=== PATIENT | male | born 1980 | race Caucasian/White ===

== ENCOUNTER 2019-12-23 08:55 | Outpatient (CLI) | payer SELFPAY ==
[2019-12-24 16:02] LABS: COVID-19 RT-PCR Result Not Detected ((See Note))
== END 2019-12-23 09:15 ==
PROVIDERS: Visit Provider Internal Medicine
DX: Z11.59 Encounter for screening for other viral diseases (principal)
CPT/HCPCS: U0003

== ENCOUNTER 2020-03-27 03:00 | Observation (INO) | payer SELFPAY ==
[2020-03-27] VITALS (31 sets, daily range): BP systolic 123–173; BP diastolic 66–125; PULSE 66–111; RESP 18–25; TEMP 36.1–38.1; O2SAT 93–98
--- NOTE | 2020-03-27 03:00 | RT.EKG_ITS ---
APPROVED REPORT Exam: Resting ECG Patient Location: E HR:82 bpm ECG Measurements Heart Rate 82 AXIS NE 157 P 68 QRSd 107 QRS -17 QT 376 T 33 QTc 437 Conclusion Sinus rhythm...normal P axis, V-rate 60- 99 Atrial premature complex...SV complex w/ short R-R interval
--- NOTE | 2020-03-27 03:00 | DI.CT_ITS ---
EXAM: CT CHEST PE ABD PELVIS W CLINICAL HISTORY: left sided chest and abdominal pain. TECHNIQUE: Imaging Protocol: Axial CT angiography was performed with multi-slice acquisition and mu lti-planar and/or 3D reconstructions. CONTRAST MATERIAL: Intravenous: Omnipaque 350 Contrast volume:99 mL COMPARISON: CT CHEST FOR PULMONARY EMBOLUS from 03/16/2017 FINDINGS: There is patient motion artifact. CHEST: Pulmonary Arteries: No evidence of filling defect to suggest pulmonary emboli. Tracheobronchial tree: Patent where visualized. Mediastinum and Nasreen: No dominant adenopathy or fluid collection. Pulmonary parenchyma: No consolidation or dominant measurable mass. No architectural distortion. Pleura: No effusion or pneumothorax. Heart: The heart is not dilated. No coronary artery calcifications are seen. No pericardial effusion. Aorta: Thoracic aorta non-dilated. No aneurysm or dissection. Bones: Normal. Soft tissues: Bilateral gynecomastia. ABDOMEN: Liver: Normal density. No measurable mass. Portal, Superior Mesenteric, and Splenic Veins: Unremarkable. Gallbladder and Biliary Tract: No radiodense calculus or dilation. Pancreas: There is a 9 cm complex lesion in the tail of the pancreas. Minimal peripancreatic strandi ng is noted. Spleen: There is a crescentic loculated fluid collection along the anterolateral aspect of the spleen . Adrenals: No masses seen. Kidneys: Normal size, contour and axis. No radiodense stones or obstructive uropathy. No masses seen. Abdominal Aorta: Abdominal portion non-dilated. Bowel: No obstruction or bowel wall thickening. No evidence of acute appendicitis. Peritoneal Cavity: No ascites, collection or mesenteric inflammatory response. Lymph Nodes: Within normal limits. Bones: Unremarkable. Soft Tissues: Unremarkable. PELVIS: Bladder: Symmetric distention, no gross wall thickening. Reproductive Organs: Unremarkable as visualized. Lymph Nodes: Within normal limits. Bones: Within normal limits. IMPRESSION: 1. No evidence of pulmonary embolism, thoracic aortic dissection or aneurysm. 2. 9 cm complex lesion in the tail of the pancreas. This may represent a complex or hemorrhagic pseu docyst but a soft tissue mass cannot be excluded. 3. Loculated fluid collection along the spleen which may also represent a pseudocyst. RADIATION DOSE DELIVERED: 2,924.36mGy.cm Total DLP 2,924.36mGy.cm Total DLP DATA REPOSITORY: All CT scans at this facility are submitted to the National Radiology Data Registry (NRDR) Dose Index Registry (DIR) with the [employer] (ACR). RADIATION OPTIMIZATION: All CT scans at this facility use at least one of these dose optimization te chniques: automated exposure control; mA and/or kV adjustment per patient size (includes targeted exa ms where dose is matched to clinical indication); or iterative reconstruction.
--- NOTE | 2020-03-27 03:09 | ED.GENADUL_ITS ---
Discharge Plan Disposition Patient Disposition: [facility] INPATIENT Condition: Stable Discharge Details Chief Complaint: Abd Prob Clinical Impression: Pancreatic pseudocyst, Abdominal pain Primary Care Provider: Michelle Mcdonnell ED Provider: Vijay Guaman Home Meds and New Rx's Prescriptions: No Action venlafaxine [Effexor XR] 150 MG capsule,extended release 24hr 100 mg PO DAILY RF: 0 buprenorphine-naloxone [Suboxone] 1 EACH film 1 film PO DAILY RF: 0 Medical Decision Making 39 yo male with hx of prior drug abuse on suboxone and prior pancreatitis in the past comes in with cc of abdominal pain for a day that is worsening. Also has had n/v. Denies fevers, chills, alcohol use tonight, no drug use. He arrives in pain localizing the pain to the left lower chest and left upper abdomen/epigastric region. No distention on exam. Does state deep breaths worsens the pain. Suspect likely pancreatitis but given pleuritic nature of pain will obtain cta of the chest to eval for PE and ct of abdomen/pelvis to evaluate for entities such as pneumoperitoneum. lab work unremarkable he remains hd stable still having pain will order administ er dilaudid awaiting imaging imaging shows likely complex psuedocyst. discussed with Dr. Louis who felt unlikely to be actively bleeding given hd stable but felt may eventually need IR so consult [facility] to see if beds available no beds available at [facility] so will be treated symptomatically here and if needed [facility] can do an IR procedure and return patient here but not indicated at this time. Spoke with Dr. Estrada who accepts for admission Differential Diagnosis Differential Diagnosis: pancreatitis, pe, acs, cholecystitis, gastroenteritis Medical Records Medical records reviewed: Yes I reviewed the patient's medical records. Imaging Data Radiologic Study: Attestation: I personally reviewed and interpreted this imaging study as follows: Imaging: CT Scan Radiologist's impression: IMPRESSION: 1. 9 cm complex lesion of the pancreatic tail could indicate a complex/hemorrhagic pseudocyst but with soft tissue mass not entirely excluded. 2. Loculated fluid along the spleen, also could indicate pseudocyst. Lab Data Lab results reviewed: Yes I reviewed the patient's lab results. ECG Data Attestation: I personally reviewed and interpreted this ECG (s) as follows: Prior ECG tracings: not available for review Interpretation: sinus rhythm, rate of 82, pr 157, motion artifact but no obvious st t wave ischemic findings HPI General Mode of arrival: ambulatory . Date/Time Provider Initiated Documentation: 03/27/20 03:00 . Limitations to Documentation: no limitations . Information obtained by: patient . History of Present Illness 39 year old M presents to the emergency department with the chief complaint of abdominal pain, described as moderate, Patient started experiencing this day(s) (1) and it has been constant. No relieving factors improve symptom(s), Patient notes nausea/vomiting. Patient did receive the following treatments prior to arrival, none Related Data Home Medications Medication Instructions Recorded Confirmed buprenorphine-naloxone [Suboxone 8 1 film PO DAILY 03/13/17 03/27/20 mg-2 mg Sl Film] venlafaxine [Effexor Xr] 100 mg PO DAILY 03/13/17 03/27/20 Allergies Allergy/AdvReac Type Severity Reaction Status Date / Time No Known Allergies Allergy Unverified 03/27/20 03:03 General Stated Complaint: Abd Prob ANGELI: 3 Review of Systems All systems reviewed & are unremarkable except as noted in HPI and below Constitutional Constitutional: Denies chills, Denies fever(s) and Denies weakness Cardiovascular Cardiovascular: Denies dyspnea Respiratory Respiratory: Denies cough and Denies dyspnea Musculoskeletal Musculoskeletal: Denies joint swelling Neurologic Neurologic: Denies weakness [facility] Social History Smoking/Tobacco Use Status: Current every day Tobacco Type: cigarettes Alcohol Intake: current Alcohol Intake frequency: holidays/special occasions only Alcohol type: other Drug use: Never Substance use type: does not use Do you feel safe at home: Yes Do you feel safe in your relationship?: Yes Exam Const General: no acute distress Orientation: alert [facility] Head: normal to inspection Ears: external ears normal General nose exam: external nose normal Mouth: moist mucous membranes Eyes General: appearance normal, both eyes and all related structures Neck Neck: normal visual inspection Resp Effort & Inspection: normal respiratory effort and able to speak in complete sentences Cardio Rate: regular rate GI Palpation: soft Skin General skin exam: no rashes or lesions noted Neuro General: patient alert and patient oriented x3 Extrem General: normal to inspection Psych Mental Status: mental status grossly normal Course Vital Signs Vital signs: Vital Signs Temperature 36.4 C L 03/27/20 03:04 Pulse 78 03/27/20 03:04 Respiratory Rate 22 03/27/20 03:04 Blood Pressure 173/103 H 03/27/20 03:04 Pulse Oximetry 97 03/27/20 03:04 Temperature 36.4 C L 03/27/20 03:04 Temperature Source Tympanic 03/27/20 03:04 Pulse 78 03/27/20 03:04 Respiratory Rate 22 03/27/20 03:04 Blood Pressure 173/103 H 03/27/20 03:04 Pulse Oximetry 97 03/27/20 03:04 Oxygen Delivery Method Room Air 03/27/20 03:04 Oxygen Flow Rate 0 03/27/20 03:04 Pain Level 10 03/27/20 03:04
[2020-03-27] MEDS: Ketorolac 15 MG/ML VIAL IVP (03:26)
[2020-03-27] MEDS: Ondansetron 4 MG/2 ML VIAL IVP ×2 (03:26→11:14)
[2020-03-27 03:27] LABS: Abs Immature Grans 0.05 10^3/uL (0.0-0.06); Absolute Basophil Count 0.02 10^3/uL (0.0-0.2); Absolute Eosinophil Count 0.01 10^3/uL (0.0-0.7); Absolute Lymphocyte Count 1.25 10^3/uL (1.2-3.4); Absolute Monocyte Count 0.47 10^3/uL (0.1-0.8); Absolute Neutrophil Count 10.58 10^3/uL (1.2-6.7); Basophils % 0.2; Eosinophils % 0.1; HCT 38.1 % (40.0-50.0); HGB 12.6 g/dL (13.5-17.5); Immature Grans % 0.4; Lymphocytes % 10.1; MCH 32.6 pg (27.0-33.0); MCHC 33.1 % (32.0-36.0); MCV 98.4 fL (80-95); MPV 9.5 fL (8.0-11.0); Monocytes % 3.8; Neutrophils % 85.4; Nucleated RBC 0 %; Platelet Count 291 10^3/uL (130-400); RBC 3.87 10^6/uL (4.36-5.78); RDW 13.3 % (11.8-14.1); RDW-SD 47.5 fL; WBC 12.39 10^3/uL (4.4-10.8)
[2020-03-27] MEDS: Omnipaque 350 MG/ML 100 ML BTL IV (04:05)
[2020-03-27] MEDS: Normal Saline 1,000 ML 1000 ML IV ×3 (04:05→14:21)
[2020-03-27] MEDS: HYDROmorphone 2 MG/ML VIAL 1 MG IVP (04:05)
[2020-03-27 04:14] LABS: Bilirubin, Total 0.3 mg/dL (0.2-1.0)
[2020-03-27 04:18] LABS: ALT 31 U/L (16-63); AST 24 U/L (15-37); Albumin 4.1 g/dL (3.4-5.0); Alkaline Phosphatase 73 U/L (46-116); Anion Gap 7.4 mmol/L (3-11); BUN 21 mg/dL (7-18); Bilirubin, Direct 0.08 mg/dL (0.00-0.20); Bilirubin, Total 0.3 mg/dL (0.2-1.0); CO2 29.6 mmol/L (21.0-32.0); CREATININE 0.96 mg/dL (0.70-1.30); Calcium 9.5 mg/dL (8.5-10.1); Chloride 98 mmol/L (98-107); Glucose 177 mg/dL (74-106); Lipase 172 U/L (73-393); Magnesium 1.6 mg/dL (1.8-2.4); Potassium 3.9 mmol/L (3.5-5.1); Sodium 135 mmol/L (136-145); Total Protein 7.8 g/dL (6.4-8.2)
[2020-03-27 04:20] LABS: INR 1.1 (0.9-1.1); PTT Activated 25.4 sec (21.0-31.4); Prothrombin Time 10.6 sec (9.3-11.0)
[2020-03-27 04:25] LABS: ETHANOL BLOOD < 3.0 mg/dL (<3); Troponin I < 0.05 ng/mL (<0.06)
--- NOTE | 2020-03-27 05:29 | DI.VRAD_ITS ---
PROCEDURE INFORMATION: Exam: CT Angiography Chest With Contrast Exam date and time: 03/27/2020 3:08 AM Age: 39 years old Clinical indication: Other: Left sided cp and abd pain/ vomiting; Additional info: *pt vomited during abd/pelvis scan, scan repeated due to motion. Limited study. TECHNIQUE: Imaging protocol: Computed tomographic angiography of the chest with intravenous contrast. 3D rendering: MIP and/or 3D reconstructed images were created by the technologist. Radiation optimization: All CT scans at this facility use at least one of these dose optimization techniques: automated exposure control; mA and/or kV adjustment per patient size (includes targeted exams where dose is matched to clinical indication); or iterative reconstruction. Contrast material: OMNIPAQUE 350; Contrast volume: 100 ml; Contrast route: INTRAVENOUS (IV); COMPARISON: CT CHEST FOR PULMONARY EMBOLUS 03/16/2017 9:40 AM FINDINGS: Pulmonary arteries: Normal. No pulmonary emboli. Aorta: Unremarkable. No aortic aneurysm. No aortic dissection. Lungs: Unremarkable. No consolidation. No masses. Pleural space: Unremarkable. No pneumothorax. No pleural effusion. Heart: Unremarkable. No cardiomegaly. No pericardial effusion. Lymph nodes: Unremarkable. No enlarged lymph nodes. Bones/joints: Unremarkable. No acute fracture. Soft tissues: Unremarkable. IMPRESSION: No acute findings. PROCEDURE INFORMATION: Exam: CT Abdomen And Pelvis With Contrast Exam date and time: 03/27/2020 3:08 AM Age: 39 years old Clinical indication: Other: Left sided cp and abd pain/ vomiting; Additional info: *pt vomited during abd/pelvis scan, scan repeated due to motion. Limited study. TECHNIQUE: Imaging protocol: Computed tomography of the abdomen and pelvis with intravenous contrast. Radiation optimization: All CT scans at this facility use at least one of these dose optimization techniques: automated exposure control; mA and/or kV adjustment per patient size (includes targeted exams where dose is matched to clinical indication); or iterative reconstruction. Contrast material: OMNIPAQUE 350; Contrast volume: 100 ml; Contrast route: INTRAVENOUS (IV); COMPARISON: CT CHEST FOR PULMONARY EMBOLUS 03/16/2017 9:40 AM FINDINGS: Liver: Normal. No mass. Gallbladder and bile ducts: Normal. No calcified stones. No ductal dilation. Pancreas: 9 cm complex lesion of the pancreatic tail could indicate a complex/hemorrhagic pseudocyst but with soft tissue mass not entirely excluded. Minimal peripancreatic stranding. Spleen: Loculated fluid along the spleen, also could indicate pseudocyst. Adrenals: Normal. No mass. Kidneys and ureters: Normal. No hydronephrosis. Stomach and bowel: Unremarkable. No obstruction. No mucosal thickening. Appendix: No evidence of appendicitis. Intraperitoneal space: Unremarkable. No free air. No significant fluid collection. Vasculature: Unremarkable. No abdominal aortic aneurysm. Lymph nodes: Unremarkable. No enlarged lymph nodes. Bladder: Unremarkable as visualized. Reproductive: Unremarkable as visualized. Bones/joints: Unremarkable. No acute fracture. Soft tissues: Unremarkable. IMPRESSION: 1. 9 cm complex lesion of the pancreatic tail could indicate a complex/hemorrhagic pseudocyst but with soft tissue mass not entirely excluded. 2. Loculated fluid along the spleen, also could indicate pseudocyst. Dictated and Authenticated by: Vijay Rainey MD. Ordering:ALEJANDRA Linares MD
[2020-03-27] MEDS: Normal Saline 1,000 ML 150 ML IV (06:12)
--- NOTE | 2020-03-27 06:56 | HPE_ITS ---
Date of service: 03/27/20 Time of Service: 06:57 Assessment and Plan Assessment and plan (1) Pancreatic pseudocyst: Status: Acute Assessment and plan: 9 cm complex pancreatic cyst w/ accompanying fluid in the spleen. This may be a hemorrhagic cyst. At present he has no fever and other than minimal elevation of his WBC to 12,000, no indication that his is an infected pancreatic phlegmon. At present I would treat him symptomatically for chronic pancreatitis w/ keeping him NPO except for medications, provide narcotic analgesics; avoid NSAIDS and avoid usual DVT prophylaxis w/ enoxaparin in case this is or becomes a hemorraghic cyst. Will hydrate w/ iv fluids and give anti- emetics. Consult w/ surgery to give additional guidance. Will get MRCP on Saturday to better evaluate the nature of the cyst. Of note, this 9 cm pancreatic cyst was not seen on CT scan nor on his abdominal US from February 2017 when he was hospitalized w/ acute pancreatitis and pneumonia. Will request that nursing call for records from the [facility] in [place], [place]. (2) Abdominal pain: Status: Acute Assessment and plan: No chemical evidence for acute pancreatitis but given his complex pancreatic cyst/pseudocyst, he probably has a component of chronic pancreatitis. This may have recently been exacerbated by his recent drinking of four to five beers. Will get an MRCP on Saturday to better evaluate his pancreatic complex cyst. This may need IR drainage. If he spikes a fever, then I would cover him w/ a carbapenem for an infected pancreatic phlegmon and arrange urgent IR drainage of the cyst. Qualifiers: Abdominal location: left upper quadrant Qualified Code(s): R10.12 - Left upper quadrant pain (3) Depression: Status: Chronic Assessment and plan: not actively suicidal or homicidal. there is some question as to his antidepressant regimen. His list includes Venlafaxine however he told me that he is taking Duloxetine. I will ask nursing to obtain a corrected med list from the [facility] in [place], [place] Qualifiers: Depression Type: major depressive disorder Major depression recurrence: recurrent Active/Remission status: remission status unspecified Qualified Code(s): F33.9 - Major depressive disorder, recurrent, unspecified History of Present Illness History of Present Illness Chief Complaint: Abdominal pain, nausea and vomiting Narrative: 39-year-old male former member the [employer] who has a past history of oral opioid addiction associated with a service injury to his hip now currently in a Suboxone program through the [facility] in [place] and also a past history of pancreatitis presents emergency department with acute onset of abdominal pain nausea and vomiting beginning at 9 PM last night. No associated fever or rigors nor any hematemesis or melena. Evaluation emergency department included CTA of the chest abdomen pelvis. No pulmonary pathology was noted. However he was noted to have a 9 cm complex cyst involving the tail the pancreas as well as some fluid collection that is loculated along the spleen also suggestive of a cyst. Labs were remarkable for minimal leukocytosis of 12,000 and a minimally depressed magnesium level 1.6. Rest of his CMP was within normal limits including normal LFTs and normal INR and normal total protein and albumin levels. Dr. Vijay Guaman, emergency room physician, consulted with [facility] as well as with Dr. Rebecca Louis, local general surgeon, kelly candelario management of this complex possibly hemorrhagic pancreatic cyst. Dr. Louis recommend referral to [facility]. [facility] indicated they had no beds available for transfer and felt he could be managed locally. Treatment emergency department included IV fluids including normal saline x1 L as well as narcotic analgesics and antiemetics including Zofran for nausea as well as Dilaudid and dose of ketorolac. Patient is admitted for pain control as well as further imaging including MRCP of his pancreas on Saturday. Review of Systems Constitutional Constitutional: Denies chills and Denies fever(s) Cardiovascular Cardiovascular: Denies chest pain and Denies dyspnea Respiratory Respiratory: Denies cough and Denies dyspnea Gastrointestinal Gastrointestinal: Reports as per HPI, Denies melena, Denies change in stool c haracter, Denies coffee ground emesis, Denies diarrhea, Reports nausea, Reports vomiting and Denies hematemesis Genitourinary Genitourinary: Reports system reviewed and no additional complaints, except as documented [facility] Medical History Cannabis abuse with other cannabis-induced disorder (Inactive) Depression (Chronic) Social History Smoking/Tobacco Use Status: Current every day Tobacco Type: cigarettes Alcohol Intake: current Alcohol Intake frequency: holidays/special occasions only Alcohol type: other Drug use: Never Substance use type: does not use Do you feel safe at home: Yes Do you feel safe in your relationship?: Yes Meds Home Medications and Allergies Home Medications Medication Instructions Recorded Confirmed Type buprenorphine-naloxone [Suboxone 8 1 film PO DAILY 03/13/17 03/27/20 History mg-2 mg Sl Film] venlafaxine [Effexor Xr] 100 mg PO DAILY 03/13/17 03/27/20 History Allergies Allergy/AdvReac Type Severity Reaction Status Date / Time No Known Allergies Allergy Unverified 03/27/20 03:03 Exam Narrative Exam Narrative: Middle age male who appears to be resting comfortably although still w/ residual abdominal pain but improved since arriving to the ER HEENT is remarkable for blood shot conjunctivae, no icterus. normal EOMI and pupils neck obese, supple, nontender w/out JVD, thyromegaly or LN Lungs clear Heart: RRR, w/o murmur, rub or gallops; normal PMI Abdomen: soft but tender particularly in LUQ and epigastrium, normal bowel sounds, positive guarding w/out rebound tenderness or referred pain Genitalia and rectal exam deferred Neuro exam is grossly normal w/ normal ROM and strength and normal sensation to light touch. No focal CN abnormalities. No tremors Results Labs Result diagrams: 03/27/20 03:21 03/27/20 03:21 Labs: Laboratory Results - last 24 hr 03/27/20 03/27/20 03/27/20 03:21 03:21 03:21 WBC 12.39 H RBC 3.87 L Hgb 12.6 L Hct 38.1 L MCV 98.4 H MCH 32.6 MCHC 33.1 RDW 13.3 Plt Count 291 MPV 9.5 Immature Gran % 0.4 Neutrophils % 85.4 Lymphocytes % 10.1 Monocytes % 3.8 Eosinophils % 0.1 Basophils % 0.2 Absolute Neutrophils 10.58 H Absolute Lymphocytes 1.25 Absolute Monocytes 0.47 Absolute Eosinophils 0.01 Absolute Basophils 0.02 PT INR APTT Sodium 135 L Potassium 3.9 Chloride 98 Carbon Dioxide 29.6 Anion Gap 7.4 BUN 21 H Creatinine 0.96 Estimated GFR/1.73 m2 >= 60.00 Glucose 177 H Calcium 9.5 Magnesium 1.6 L Total Bilirubin 0.3 0.3 Conjugated Bilirubin 0.08 AST 24 ALT 31 Alkaline Phosphatase 73 Troponin I < 0.05 Total Protein 7.8 Albumin 4.1 Lipase 172 Ethyl Alcohol < 3.0 03/27/20 03:21 WBC RBC Hgb Hct MCV MCH MCHC RDW Plt Count MPV Immature Gran % Neutrophils % Lymphocytes % Monocytes % Eosinophils % Basophils % Absolute Neutrophils Absolute Lymphocytes Absolute Monocytes Absolute Eosinophils Absolute Basophils PT 10.6 INR 1.1 APTT 25.4 Sodium Potassium Chloride Carbon Dioxide Anion Gap BUN Creatinine Estimated GFR/1.73 m2 Glucose Calcium Magnesium Total Bilirubin Conjugated Bilirubin AST ALT Alkaline Phosphatase Troponin I Total Protein Albumin Lipase Ethyl Alcohol Last Vital Signs Temp 36.4 C L 03/27/20 03:04 Pulse 66 03/27/20 05:39 Resp 22 03/27/20 03:04 BP 147/82 H 03/27/20 05:39 Pulse Ox 96 03/27/20 05:39 COVID-19 Screening Have you,or household,traveled outside [place] in last 14 days?: No Had IN PERSON contact w/suspected or confirmed C-19 person: No
[2020-03-27 07:59] LABS: Bilirubin Negative (Negative); Blood Negative (Negative); Clarity Clear (Clear); Glucose Negative (Negative); Ketones Negative (Negative); Leukocyte Esterase Negative (Negative); Nitrite Negative (Negative); Specific Gravity 1.015 (1.005-1.025); Urobilinogen 0.2 EU/dL (Up TO 0.2); pH 8.5 (5-8)
[2020-03-27] MEDS: HYDROmorphone 2 MG/ML VIAL IVP ×2 (08:02→11:15)
[2020-03-27] MEDS: MAGNESIUM SULFATE 2 GM/50 ML BAG IVPB ×2 (08:03→14:03)
[2020-03-27] MEDS: Normal Saline Flush 10 ML SYR IVP ×4 (08:03→12:21)
[2020-03-27 08:04] LABS: *AMPHETAMINES SCREEN URINE Negative (Negative); *BARBITURATES SCREEN URINE Negative (Negative); *BENZODIAZEPINES SCREEN URINE Negative (Negative); Cannabinoids THC Negative (Negative); Cocaine Screen,Urine Negative (Negative); METHADONE URINE SCREEN Negative (Negative); OPIATES URINE SCREEN POSITIVE (Negative)
[2020-03-27 08:05] LABS: Tricyclic Antidepressants POSITIVE (Negative)
[2020-03-27 08:14] LABS: Bacteria Negative HPF (Negative); Casts Negative LPF (Negative); Crystals Negative HPF (Negative); Epithelial Cells Rare HPF (Negative); Mucus Negative (Negative); RBC Negative HPF (0-2); WBC 0-2 HPF (0-5)
[2020-03-27 08:15] LABS: C & S Indicated? No
[2020-03-27] MEDS: Pantoprazole 40 MG VIAL IVP (09:37)
[2020-03-27] MEDS: ACETAMINOPHEN 1,000 MG/100 ML BTL 400 MG IVPB (10:30)
[2020-03-27] MEDS: MULTIVITAMIN 10 ML, THIAMINE 100 MG, FOLIC ACID 1 MG in DEXTROSE 5%-0.45% SALINE 1,000 ML 200 ML IV (11:32)
[2020-03-27] MEDS: Prochlorperazine 10 MG/2 ML VIAL IVP (12:21)
[2020-03-27 12:27] LABS: Abs Immature Grans 0.07 10^3/uL (0.0-0.06); Basophils % 0.1; Eosinophils % 0.1; HCT 39.5 % (40.0-50.0); HGB 13.1 g/dL (13.5-17.5); Immature Grans % 0.4; Lymphocytes % 9.8; MCH 32.4 pg (27.0-33.0); MCHC 33.2 % (32.0-36.0); MCV 97.8 fL (80-95); MPV 9.4 fL (8.0-11.0); Neutrophils % 83.6; Nucleated RBC 0 %; Platelet Count 355 10^3/uL (130-400); RBC 4.04 10^6/uL (4.36-5.78); RDW 13.2 % (11.8-14.1); RDW-SD 47.5 fL; WBC 16.39 10^3/uL (4.4-10.8)
[2020-03-27 12:28] LABS: Absolute Basophil Count 0.02 10^3/uL (0.0-0.2); Absolute Eosinophil Count 0.02 10^3/uL (0.0-0.7); Absolute Lymphocyte Count 1.61 10^3/uL (1.2-3.4); Absolute Monocyte Count 0.98 10^3/uL (0.1-0.8)
[2020-03-27] MEDS: LORazepam 2 MG/ML VIAL 3 MG IVP ×2 (12:45→15:08)
--- NOTE | 2020-03-27 12:45 | PDOC.CMIN ---
- If Service Date Differs Date of service: 03/27/20 Time of Service: 13:32 Care Management Initial Assess REASON FOR HOSPITALIZATION:: Pseudocyst PAST MEDICAL HISTORY/PAST SURGICAL HISTORY:: Cannabis abuse with other cannabi-induced disorder, Depression: Major Depressive Disorder, everyday smoker, chronic pancreatitis, prior oral opioid addiction; Suboxone program participant through [facility]. PREVIOUS FUNCTIONAL STATUS/SOCIAL/FAMILY SUPPORTS:: Vijay resides in [place], [place]. He is legally seperated from his and has two daughters (6 and 12). His mother, Isatu is his primary support and resides in [facility]. Vijay is an [employer] [place] and is attached to services at the [facility]. He is independent at baseline in the community. CURRENT FUNCTIONAL STATUS:: Vijay was transferred to the ICU due to his symptoms of pain, nausea and vomiting, CM continues to follow. ADVANCE DIRECTIVES:: None on file at [facility]. Has patient been provided with info about the portal/API?: No Did the patient sign up for the portal?: No CODE STATUS:: Full Code INSURANCE COVERAGE / FINANCIAL ISSUES:: Self Pay status. CURRENT HOME/COMMUNITY SERVICES/EQUIPMENT:: Primary provider at [facility] facility in [place]. PRIMARY CARE PHYSICIAN:: Michelle Mcdonnell POTENTIAL DISCHARGE NEEDS:: Follow up appointments, MRCP. PATIENT/FAMILY EDUCATION NEEDS:: Review discharge instructions, discuss Ask Me Three. ANTICIPATED BARRIERS TO DISCHARGE:: None identified. TRANSPORTATION:: TBD by disposition. PLAN:: Vijay was transferred to the ICU due to CIWA scores and increase in symptoms. Anticipate MRCP tomorrow; awaiting plan for intervention or transfer considerations.
--- NOTE | 2020-03-27 12:58 | PHA.REVIEW ---
Pharmacy Admission Review - Admission Clinical Review (Last Reviewed 03/27/20 @ 09:03 by Sebas Estrada) Pancreatic pseudocyst (Acute) Abdominal pain (Acute) No Known Allergies Allergy (Unverified 03/27/20 03:03) Height 5 ft 10 in Weight 108.862 kg - Renal Dosing Renal Dosing: BUN 21 mg/dL (7-18) H 03/27/20 03:21 Creatinine 0.96 mg/dL (0.70-1.30) 03/27/20 03:21 Medications needing adjustments: Reviewed - Anticoagulation Anticoagulation: Hgb 13.1 g/dL (13.5-17.5) L 03/27/20 12:15 Hct 39.5 % (40.0-50.0) L 03/27/20 12:15 Plt Count 355 10^3/uL (130-400) 03/27/20 12:15 INR 1.1 (0.9-1.1) 03/27/20 03:21 Creatinine 0.96 mg/dL (0.70-1.30) 03/27/20 03:21 DVT Prohphylaxis: N/A Therapeutic Anticoagulation: N/A - Opiate Usage Evaluate Pain Scale/Pains Meds: N/A (Is on chronic suboxone therapy.) - Relevant Labs Sodium 135 mmol/L (136-145) L 03/27/20 03:21 Potassium 3.9 mmol/L (3.5-5.1) 03/27/20 03:21 Chloride 98 mmol/L (98-107) 03/27/20 03:21 Magnesium 1.6 mg/dL (1.8-2.4) L 03/27/20 03:21 Electrolytes, C-Reactive P, ESR: Reviewed (rec'd 2 grams Mag) - DM Control DM Control: Glucose 177 mg/dL (74-106) H 03/27/20 03:21 Insulin Dosing: N/A - Heart Failure/UT Heart Failure/UT: Troponin I < 0.05 ng/mL (<0.06) 03/27/20 03:21 EF%, HIRA's, B-Blockers, Diuretics: Reviewed - BP Control BP Control: Blood Pressure 168/100 Blood Pressure 150/92 Blood Pressure 150/92 Blood Pressure 147/82 Blood Pressure 173/102 Blood Pressure 173/103 If elevated: Reviewed - Qtc Review If Elevated: Reviewed (QTc 437) - IV to PO Switch IV Medications: Reviewed - Home Meds Home Med List reviewed: Reviewed (Was able to verify suboxone dose of 20mg daily via [facility], is also on zaleplon 10mg at HS per [facility] and methylphenidate ER 36mg qAM per [facility] -- [facility]) - Current meds Current Medication Order Review: Reviewed (ondansetron + prochlorperazine + promethazine = risk of QT prolongation)
[2020-03-27 13:06] LABS: Lactate 1.2 mmol/L (0.6-1.4)
--- NOTE | 2020-03-27 13:25 | W.PM.DS.N ---
Date of service: 03/27/20 Time of Service: 13:25 DS: Diagnosis Discharge Diagnosis (1) Pancreatic pseudocyst: Status: Acute Asessment and Plan: complex, with suspected hemorrhage (2) Peritonitis: Status: Suspected (3) Abdominal pain: Status: Acute (4) Intractable nausea and vomiting: Status: Acute (5) Leucocytosis: Status: Acute (6) Alcohol withdrawal: Status: Acute Asessment and Plan: lastest CIWA score 9 (7) Dehydration: Status: Acute (8) Hypomagnesemia: Status: Acute (9) Opioid dependence: Status: Acute (10) Depression: Status: Chronic Discharge Plan Disposition Patient Disposition: [facility] Condition: Serious Discharge Details Chief Complaint: Abd Prob Clinical Impression: Pancreatic pseudocyst, Abdominal pain Reason For Visit: PSEUDOCYST Admit Date/Time: 03/27/20 06:01 Admit Provider: Sebas Estrada Attending Provider: Sebas Estrada Primary Care Provider: Michelle Mcdonnell ED Provider: Vijay Guaman Hospital Course Hospital Course: Mr Sanches is a 39 year old male with PMHx of one prior episode of alcohol pancreatitis in 2017 as well as opioid dependence of suboxone through the [facility] who developed an acute onset of LUQ abdominal pain since 9 pm last night. His workup revealed normal LFTs and lipase, but evidence of a 9 cm complex lesion at the tail of the pancreas, which is suspected to be a pseudocyst with acute hemorrhage. There is also another loculated fluid collection seen along the spleen, which is possibly another pseudocyst. The patient admit to drinking on 03/25/2020, but states that he had not drunk for at least 2 months prior and that he had not had any bouts of pancreatitis since 2017. As there were no beds at [facility], he was admitted to [facility] hospitalist service with surgical consultation on 03/27/2020. Mr Sanches developed intractable nausea and vomiting, for which he did have an NG tube placed. While his abdomen is still soft, he is starting to develop peritoneal signs with rebound tenderness and exquisite pain on even mild palpation. There is a concern that this peritonitis is developing due to the hemorrhaging pseudocyst. The patient is visibly clinically deteriorating and was transferred to the ICU. Dr Louis of general surgery has evaluated the patient and feels he would benefit from a transfer to a tertiary care facility where IR would be available for evaluation for possible embolization of the hemorrhage and a drain. The patient's hemoglobin has actually gone up to 13.1 since 12.6 on admission, presumably due to his volume contraction from vomiting. In the 8 hours at our facility, his WBC has also gone up from 12.39 to 16.39 without evidence of fever (though he received acetaminophen for pain). His lactate is 1.2. He is not on antibiotics at this time. His pain management here is complicated with the fact that he was on suboxone as outpatient, held on admission. He has required high doses of dilaudid at short intervals. Additionally, the patient is now beginning to show signs of alcohol withdrawal, though he is adamant he only drank once in the last two months - on 03/25/2020. His last CIWA score is 9. He did require initiation of soft upper extremity restraints as he was agitated and pulling on the NGT. His agitation resolved with IV ativan to treat his alcohol withdrawal. The patient has a surveillance COVID-19 test (nasopharyngeal swab) pending at the time of transfer, though there is low clinical concern for him having COVID-19 (negative screen). The patient was discussed with Dr Gibson of [facility] General Surgery who felt the patient would be appropriate for transfer to [facility] ICU under the surgical service for closer monitoring and evaluation by IR for the complex hemorrhagic pancreatic pseudocyst with suspected developing peritonitis. The patient is hemodynamically stable at this time and is agreeable with transfer. Total Critical Care Time as well as time spent on arrangement of transfer: 60 minutes. *For current inpatient medications, please, look at the MAR rather than the list of patient's medications below. Home Meds and New Rx's Prescriptions: No Action buprenorphine-naloxone 8-2 mg tablet, sublingual 2.5 tab sublingual DAILY RF: 0 sildenafil 100 mg Tablet 100 mg PO DAILY PRN PRN (Reason: Edema) RF: 0 zaleplon 5 mg Capsule 5 mg PO HS PRN PRN (Reason: Insomnia) RF: 0 methylphenidate HCl 36 mg Tablet Extended Release 24hr 36 mg PO DAILY RF: 0 duloxetine 30 mg Capsule,Delayed Release(Dr/Ec) 90 mg PO DAILY RF: 0 Discharge Instructions Activity:: OOB to chair Equipment/Supplies:: No Equipment Needed Diet:: NPO Discharge Orders Discharge Orders: Discharge Order (Routine); Ordered 03/27/20 Ordered By: Jolanta Odonnell DS: Summary Status at Discharge Functional status at discharge: independent ambulation Overall status at discharge: patient is not back to baseline Mental Status: other Speech and Movement: speech and movement normal Mood: anxious mood and other Affect: labile affect Exam Narrative Exam Narrative: General: Anxious obese male who is seen/heard vomiting multiple times throughout the day, looks sick, in visible pain HEENT: EOMI, dry MM Heart: RRR, no m/r/g Lungs: CTAB Abdomen: soft, exquisitely tender in LUQ with rebound Extremities: no e/c/c BLE's Psych Mental Status: other Speech and Movement: speech and movement normal Mood: anxious mood and other Affect: labile affect DS: Data Vitals/I&O Vitals and I&O: Vital Signs Temperature 37.2 C 03/27/20 11:24 Temperature Source Tympanic 03/27/20 11:24 Pulse 71 03/27/20 11:24 Pulse Rhythm Regular 03/27/20 07:10 Respiratory Rate 20 03/27/20 11:24 Respiratory Effort Non-Labored 03/27/20 07:10 Respiratory Depth Normal 03/27/20 07:10 Respiratory Pattern Normal 03/27/20 07:10 Blood Pressure 168/100 H 03/27/20 11:24 Blood Pressure Mean 95 03/27/20 05:39 Pulse Oximetry 97 03/27/20 11:24 Oxygen Delivery Method Room Air 03/27/20 11:24 Oxygen Flow Rate 0 03/27/20 11:24 Pain Level 10 03/27/20 12:21 Comment 03/27/20 07:10 Intake & Output 03/26/20 03/27/20 03/27/20 23:59 11:59 23:59 Intake Total 2023.2023. Output Total 200 / 200 Balance 1823.166 / 1823. Weight 108.862 kg Intake: IV 2023. Output: Urine 200 / 200 Other: Urine Color Straw Urine Appearance Clear Urine Odor Normal Comment Void x1 in the toilet. Urine specimen collected at this time per MD order. Voiding Methods Toilet Data Completed and Pending Completed studies during hospitalization [Text1]: CT chest/abdomen/pelvis: 1. No evidence of pulmonary embolism, thoracic aortic dissection or aneurysm. 2. 9 cm complex lesion in the tail of the pancreas. This may represent a complex or hemorrhagic pseudocyst but a soft tissue mass cannot be excluded. 3. Loculated fluid collection along the spleen which may also represent a pseudocyst. Minimal peripancreatic stranding is noted. Labs on day of discharge: Labs from last 24 hours 03/27/20 03/27/20 03/27/20 12:55 12:15 07:15 WBC 16.39 H D RBC 4.04 L Hgb 13.1 L Hct 39.5 L MCV 97.8 H MCH 32.4 MCHC 33.2 RDW 13.2 Plt Count 355 MPV 9.4 Immature Gran % 0.4 Neutrophils % 83.6 Lymphocytes % 9.8 Monocytes % 6.0 Eosinophils % 0.1 Basophils % 0.1 Absolute Neutrophils 13.70 H Absolute Lymphocytes 1.61 Absolute Monocytes 0.98 H Absolute Eosinophils 0.02 Absolute Basophils 0.02 PT INR APTT Sodium Potassium Chloride Carbon Dioxide Anion Gap BUN Creatinine Estimated GFR/1.73 m2 Glucose Lactate 1.2 Calcium Magnesium Total Bilirubin Conjugated Bilirubin AST ALT Alkaline Phosphatase Troponin I Total Protein Albumin Lipase Urine Color Yellow Urine Clarity Clear Urine pH 8.5 H Ur Specific [place] 1.015 Urine Protein Trace H Urine Ketones Negative Urine Blood Negative Urine Nitrite Negative Urine Bilirubin Negative Urine Urobilinogen 0.2 Ur Leukocyte Esterase Negative Urine RBC Negative Urine WBC 0-2 Ur Epithelial Cells Rare Urine Crystals Negative Urine Bacteria Negative Urine Casts Negative Urine Mucus Negative Ur Culture Indicated? No Urine Glucose Negative Urine Opiates Screen Urine Methadone Screen Ur Barbiturates Screen Ur Tricyclics Screen Ur Amphetamines Screen U Benzodiazepines Scrn Urine Cocaine Screen Ur THC Screen Ethyl Alcohol COVID-19 PCR Nasopharyn COVID-19 PCR Ref Test Perform Site 03/27/20 03/27/20 03/27/20 07:15 06:00 03:21 WBC RBC Hgb Hct MCV MCH MCHC RDW Plt Count MPV Immature Gran % Neutrophils % Lymphocytes % Monocytes % Eosinophils % Basophils % Absolute Neutrophils Absolute Lymphocytes Absolute Monocytes Absolute Eosinophils Absolute Basophils PT 10.6 INR 1.1 APTT 25.4 Sodium Potassium Chloride Carbon Dioxide Anion Gap BUN Creatinine Estimated GFR/1.73 m2 Glucose Lactate Calcium Magnesium Total Bilirubin Conjugated Bilirubin AST ALT Alkaline Phosphatase Troponin I Total Protein Albumin Lipase Urine Color Urine Clarity Urine pH Ur Specific [place] Urine Protein Urine Ketones Urine Blood Urine Nitrite Urine Bilirubin Urine Urobilinogen Ur Leukocyte Esterase Urine RBC Urine WBC Ur Epithelial Cells Urine Crystals Urine Bacteria Urine Casts Urine Mucus Ur Culture Indicated? Urine Glucose Urine Opiates Screen Positive A Urine Methadone Screen Negative Ur Barbiturates Screen Negative Ur Tricyclics Screen Positive A Ur Amphetamines Screen Negative U Benzodiazepines Scrn Negative Urine Cocaine Screen Negative Ur THC Screen Negative Ethyl Alcohol COVID-19 PCR Pending Nasopharyn COVID-19 PCR Pending Ref Test Perform Site Pending 03/27/20 03/27/20 03/27/20 03:21 03:21 03:21 WBC 12.39 H RBC 3.87 L Hgb 12.6 L Hct 38.1 L MCV 98.4 H MCH 32.6 MCHC 33.1 RDW 13.3 Plt Count 291 MPV 9.5 Immature Gran % 0.4 Neutrophils % 85.4 Lymphocytes % 10.1 Monocytes % 3.8 Eosinophils % 0.1 Basophils % 0.2 Absolute Neutrophils 10.58 H Absolute Lymphocytes 1.25 Absolute Monocytes 0.47 Absolute Eosinophils 0.01 Absolute Basophils 0.02 PT INR APTT Sodium 135 L Potassium 3.9 Chloride 98 Carbon Dioxide 29.6 Anion Gap 7.4 BUN 21 H Creatinine 0.96 Estimated GFR/1.73 m2 >= 60.00 Glucose 177 H Lactate Calcium 9.5 Magnesium 1.6 L Total Bilirubin 0.3 0.3 Conjugated Bilirubin 0.08 AST 24 ALT 31 Alkaline Phosphatase 73 Troponin I < 0.05 Total Protein 7.8 Albumin 4.1 Lipase 172 Urine Color Urine Clarity Urine pH Ur Specific [place] Urine Protein Urine Ketones Urine Blood Urine Nitrite Urine Bilirubin Urine Urobilinogen Ur Leukocyte Esterase Urine RBC Urine WBC Ur Epithelial Cells Urine Crystals Urine Bacteria Urine Casts Urine Mucus Ur Culture Indicated? Urine Glucose Urine Opiates Screen Urine Methadone Screen Ur Barbiturates Screen Ur Tricyclics Screen Ur Amphetamines Screen U Benzodiazepines Scrn Urine Cocaine Screen Ur THC Screen Ethyl Alcohol < 3.0 COVID-19 PCR Nasopharyn COVID-19 PCR Ref Test Perform Site [facility] Medical History Abnormal LFTs (Acute) Adjustment disorder (Chronic) Anxiety disorder (Acute) Cannabis abuse with other cannabis-induced disorder (Inactive) Cannabis dependence (Acute) Depression (Chronic) Dyslipidemia (Acute) Hypertension (Chronic) Low back pain (Acute) Mood disorder (Acute) Nicotine dependence (Acute) Opioid dependence (Acute) Pubic ramus fracture (Acute) Social History Smoking/Tobacco Use Status: Current every day Tobacco Type: cigarettes Alcohol Intake: current Alcohol Intake frequency: holidays/special occasions only Alcohol type: other Drug use: Never Substance use type: does not use Do you feel safe at home: Yes Do you feel safe in your relationship?: Yes
--- NOTE | 2020-03-27 13:30 | SCONE_ITS ---
Date of service: 03/27/20 Time of Service: 13:30 Assessment and Plan Assessment and plan (1) Opioid dependence: Status: Acute (2) Intractable nausea and vomiting: Status: Acute (3) Leucocytosis: Status: Acute (4) Peritonitis: Status: Suspected (5) Alcohol withdrawal: Status: Acute (6) Abdominal pain: Status: Acute Qualifiers: Abdominal location: left upper quadrant Qualified Code(s): R10.12 - Left upper quadrant pain (7) Cyst and pseudocyst of pancreas: Status: Acute Assessment and plan: x2 one of them appears to have acute hemorrhage on CT. hemodynacmically he has been stable. repeat hgb 12.4 to 11.4. (13.1 at noon- but this was though to be do to hemoconcentration from dehydration secondary to vomiting). pt was vomiting profusely this am and was dehydrated. In the process of resuscitating the pt he b/c extremely belligerent and violent. He was attempting to pull out lines and tubes and was going to leave. He could not be talked down and he had to be restrained. His behavior is more than one would expect from even severe anxiety. I don't feel it was from sepsis or acute bleeding. repeat lactate was 2.3 (1.2). He did have an elevated WBC # on a repeat blood draw at noon- but he was extremely dehydrated at that time. He did spike a temp (15:00) of 38.1- blood cults were done adn primaxin started. He is in the process of being transferred to [facility] for GI eval of pseudocyst. possible need for IR drainage vs embolization if this is truly hemorrhagic. EXAM: CT CHEST PE ABD PELVIS W CLINICAL HISTORY: left sided chest and abdominal pain. TECHNIQUE: Imaging Protocol: Axial CT angiography was performed with multi- slice acquisition and multi-planar and/or 3D reconstructions. CONTRAST MATERIAL: Intravenous: Omnipaque 350 Contrast volume:99 mL COMPARISON: CT CHEST FOR PULMONARY EMBOLUS from 03/16/2017 FINDINGS: There is patient motion artifact. CHEST: Pulmonary Arteries: No evidence of filling defect to suggest pulmonary emboli. Tracheobronchial tree: Patent where visualized. Mediastinum and Nasreen: No dominant adenopathy or fluid collection. Pulmonary parenchyma: No consolidation or dominant measurable mass. No architectural distortion. Pleura: No effusion or pneumothorax. Heart: The heart is not dilated. No coronary artery calcifications are seen. No pericardial effusion. Aorta: Thoracic aorta non-dilated. No aneurysm or dissection. Bones: Normal. Soft tissues: Bilateral gynecomastia. ABDOMEN: Liver: Normal density. No measurable mass. Portal, Superior Mesenteric, and Splenic Veins: Unremarkable. Gallbladder and Biliary Tract: No radiodense calculus or dilation. Pancreas: There is a 9 cm complex lesion in the tail of the pancreas. Minimal peripancreatic stranding is noted. Spleen: There is a crescentic loculated fluid collection along the anterolateral aspect of the spleen. Adrenals: No masses seen. Kidneys: Normal size, contour and axis. No radiodense stones or obstructive uropathy. No masses seen. Abdominal Aorta: Abdominal portion non-dilated. Bowel: No obstruction or bowel wall thickening. No evidence of acute appendicitis. Peritoneal Cavity: No ascites, collection or mesenteric inflammatory response. Lymph Nodes: Within normal limits. Bones: Unremarkable. Soft Tissues: Unremarkable. PELVIS: Bladder: Symmetric distention, no gross wall thickening. Reproductive Organs: Unremarkable as visualized. Lymph Nodes: Within normal limits. Bones: Within normal limits. IMPRESSION: 1. No evidence of pulmonary embolism, thoracic aortic dissection or aneurysm. 2. 9 cm complex lesion in the tail of the pancreas. This may represent a complex or hemorrhagic pseudocyst but a soft tissue mass cannot be excluded. 3. Loculated fluid collection along the spleen which may also represent a pseudocyst. 3hours spent in critical care time History of Present Illness Narrative: pt was admitted earlier this am throught the ED. ED notes reviewed. Ct and labs reviewed. notes from [facility] reviewd. Pt had an episode of severe pancreatitis in 2017. From reading his chart, it does not appear that he has had any further episodes of pancreatitis since than. He has not had any further imagin b/t 2017 adn today. Pt is extremely agitated and anxious. When attempting to inquire about his PMHx, pt b/c very angry. He is on chronic suboxone 20mg dialy, as well as concerta, NRSI and sleeping meds. He has a hx of tobacco and daily THC use. He has a hx of opiate abuse- but has been on suboxone for many years. He states that he had not had any ETOH in 2m. on Saturday night he admits to 4-5 beers. He denies any other drugs. He has been vomiting all am and is c/o severe abdominal pain. Although it is hard to sort out how truly severe his pain is, given his degree of agitation. He is afebrile. HR is in the 80's. BP- is actually hypertensive. He is flailing in bed, and cannot hold still. He did not receive any of his usual meds this am. Drug screen from the ED reviewed. Consults Requesting physician: Jolanta Odonnell Review of Systems Unobtainable due to mental status [facility] Medical History (Updated 03/27/20 @ 16:59 by Rebecca Louis DO) Abnormal LFTs (Acute) Adjustment disorder (Chronic) Anxiety disorder (Acute) Cannabis abuse with other cannabis-induced disorder (Inactive) Cannabis dependence (Acute) Cyst and pseudocyst of pancreas (Acute) acute hemorrhage Depression (Chronic) Dyslipidemia (Acute) Hypertension (Chronic) Low back pain (Acute) Mood disorder (Acute) Nicotine dependence (Acute) Opioid dependence (Acute) Pubic ramus fracture (Acute) Social History Smoking/Tobacco Use Status: Current every day Tobacco Type: cigarettes Alcohol Intake: current Alcohol Intake frequency: holidays/special occasions only Alcohol type: other Drug use: Never Substance use type: does not use Do you feel safe at home: Yes Do you feel safe in your relationship?: Yes Exam Const General: well developed, anxious, combative, diaphoretic, disheveled and intoxicated appearing Nutritional Appearance: overweight Orientation: confused Limitations: altered mental status and behavioral limitations [facility] Head: normal to inspection Ears: hearing grossly normal bilaterally General nose exam: external nose normal and no nasal discharge Face and sinus: normal facial exam Eyes Sclera: sclerae normal Chest Chest: normal inspection of the chest Resp Effort & Inspection: normal respiratory effort and able to speak in complete sentences Auscultation: clear to auscultation bilaterally Cardio Rate: regular rate Rhythm: regular rhythm GI Inspection: normal to inspection, non-distended and no scars Palpation: no hernias Auscultation: absent bowel sounds Other: pt is complaining of severe abdominal pain w/ rebound and guarding. However, he is thrashing about in bed and continuously throwing himself off and on the bed. Skin General skin exam: no rashes or lesions noted and elasticity normal Extrem General: normal to inspection, full ROM and no clubbing, cyanosis or edema Other: moving all ext independently Psych Appearance: disheveled Speech and Movement: agitated Mood: anxious mood, manic mood, paranoid and angry Affect: anxious affect and hostile Attitude: refuses to answer Thought Process: illogical Insight: poor Judgment: poor Other: pt is combative. nursing attempting multiple times to re-orientate and explain his condition and our objectives to help him. pt is suspicious and hostile and trying to rip out lines/tubes adn leave hosp. Results Last Vital Signs Temp 37.2 C 03/27/20 11:24 Pulse 71 03/27/20 11:24 Resp 20 03/27/20 11:24 BP 168/100 H 03/27/20 11:24 Pulse Ox 97 03/27/20 11:24 Labs Result diagrams: 03/27/20 15:50 03/27/20 03:21 Labs: Laboratory Results - last 24 hr 03/27/20 03/27/20 03/27/20 03:21 03:21 03:21 WBC 12.39 H RBC 3.87 L Hgb 12.6 L Hct 38.1 L MCV 98.4 H MCH 32.6 MCHC 33.1 RDW 13.3 Plt Count 291 MPV 9.5 Immature Gran % 0.4 Neutrophils % 85.4 Lymphocytes % 10.1 Monocytes % 3.8 Eosinophils % 0.1 Basophils % 0.2 Absolute Neutrophils 10.58 H Absolute Lymphocytes 1.25 Absolute Monocytes 0.47 Absolute Eosinophils 0.01 Absolute Basophils 0.02 PT INR APTT Sodium 135 L Potassium 3.9 Chloride 98 Carbon Dioxide 29.6 Anion Gap 7.4 BUN 21 H Creatinine 0.96 Estimated GFR/1.73 m2 >= 60.00 Glucose 177 H Lactate Calcium 9.5 Magnesium 1.6 L Total Bilirubin 0.3 0.3 Conjugated Bilirubin 0.08 AST 24 ALT 31 Alkaline Phosphatase 73 Troponin I < 0.05 Total Protein 7.8 Albumin 4.1 Lipase 172 Urine Color Urine Clarity Urine pH Ur Specific [place] Urine Protein Urine Ketones Urine Blood Urine Nitrite Urine Bilirubin Urine Urobilinogen Ur Leukocyte Esterase Urine RBC Urine WBC Ur Epithelial Cells Urine Crystals Urine Bacteria Urine Casts Urine Mucus Ur Culture Indicated? Urine Glucose Urine Opiates Screen Urine Methadone Screen Ur Barbiturates Screen Ur Tricyclics Screen Ur Amphetamines Screen U Benzodiazepines Scrn Urine Cocaine Screen Ur THC Screen Ethyl Alcohol < 3.0 03/27/20 03/27/20 03/27/20 03:21 07:15 07:15 WBC RBC Hgb Hct MCV MCH MCHC RDW Plt Count MPV Immature Gran % Neutrophils % Lymphocytes % Monocytes % Eosinophils % Basophils % Absolute Neutrophils Absolute Lymphocytes Absolute Monocytes Absolute Eosinophils Absolute Basophils PT 10.6 INR 1.1 APTT 25.4 Sodium Potassium Chloride Carbon Dioxide Anion Gap BUN Creatinine Estimated GFR/1.73 m2 Glucose Lactate Calcium Magnesium Total Bilirubin Conjugated Bilirubin AST ALT Alkaline Phosphatase Troponin I Total Protein Albumin Lipase Urine Color Yellow Urine Clarity Clear Urine pH 8.5 H Ur Specific [place] 1.015 Urine Protein Trace H Urine Ketones Negative Urine Blood Negative Urine Nitrite Negative Urine Bilirubin Negative Urine Urobilinogen 0.2 Ur Leukocyte Esterase Negative Urine RBC Negative Urine WBC 0-2 Ur Epithelial Cells Rare Urine Crystals Negative Urine Bacteria Negative Urine Casts Negative Urine Mucus Negative Ur Culture Indicated? No Urine Glucose Negative Urine Opiates Screen Positive A Urine Methadone Screen Negative Ur Barbiturates Screen Negative Ur Tricyclics Screen Positive A Ur Amphetamines Screen Negative U Benzodiazepines Scrn Negative Urine Cocaine Screen Negative Ur THC Screen Negative Ethyl Alcohol 03/27/20 03/27/20 12:15 12:55 WBC 16.39 H D RBC 4.04 L Hgb 13.1 L Hct 39.5 L MCV 97.8 H MCH 32.4 MCHC 33.2 RDW 13.2 Plt Count 355 MPV 9.4 Immature Gran % 0.4 Neutrophils % 83.6 Lymphocytes % 9.8 Monocytes % 6.0 Eosinophils % 0.1 Basophils % 0.1 Absolute Neutrophils 13.70 H Absolute Lymphocytes 1.61 Absolute Monocytes 0.98 H Absolute Eosinophils 0.02 Absolute Basophils 0.02 PT INR APTT Sodium Potassium Chloride Carbon Dioxide Anion Gap BUN Creatinine Estimated GFR/1.73 m2 Glucose Lactate 1.2 Calcium Magnesium Total Bilirubin Conjugated Bilirubin AST ALT Alkaline Phosphatase Troponin I Total Protein Albumin Lipase Urine Color Urine Clarity Urine pH Ur Specific [place] Urine Protein Urine Ketones Urine Blood Urine Nitrite Urine Bilirubin Urine Urobilinogen Ur Leukocyte Esterase Urine RBC Urine WBC Ur Epithelial Cells Urine Crystals Urine Bacteria Urine Casts Urine Mucus Ur Culture Indicated? Urine Glucose Urine Opiates Screen Urine Methadone Screen Ur Barbiturates Screen Ur Tricyclics Screen Ur Amphetamines Screen U Benzodiazepines Scrn Urine Cocaine Screen Ur THC Screen Ethyl Alcohol
[2020-03-27] MEDS: LORazepam 2 MG/ML VIAL IVP (13:35)
--- NOTE | 2020-03-27 13:42 | NUR.NOTE ---
Nursing Note: At 1230 on 03/27/20, this RN gave report to Mayra Sanchez RN. At 1240 on 03/27/20, pt. was transferred from Med/Surg to ICU per MD order. Pt. was transferred via wheelchair. RN will reassess as necessary.
[2020-03-27] MEDS: POTASSIUM CHLORIDE 10 MEQ/100 ML BAG 100 MEQ IVPB (14:03)
[2020-03-27 14:38] LABS: Amylase 59 U/L (25-115); C-Reactive Protein 0.23 mg/dL (0.0-0.3)
[2020-03-27 14:55] LABS: COVID-19 RT-PCR UVMMC Result Negative (Negative)
[2020-03-27] MEDS: Haloperidol 5 MG/ML VIAL (15:12)
[2020-03-27] MEDS: diphenhydrAMINE 50 MG/ML VIAL (15:15)
[2020-03-27 16:19] LABS: Lactate 2.3 mmol/L (0.6-1.4)
[2020-03-27 16:21] LABS: HCT 33.6 % (40.0-50.0); HGB 11.4 g/dL (13.5-17.5)
[2020-03-27] MEDS: IMIPENEM/CILASTATIN 1,000 MG in Normal Saline 250 ML 250 MG IVPB (16:50)
--- NOTE | 2020-03-27 17:00 | RT.EKG_ITS ---
APPROVED REPORT Exam: Resting ECG Patient Location: I HR:93 bpm ECG Measurements Heart Rate 93 AXIS CO 166 P 56 QRSd 107 QRS -22 QT 354 T 35 QTc 441 Conclusion Sinus rhythm...normal P axis, V-rate 60- 99
[2020-03-27] MEDS: LORazepam 2 MG/ML VIAL ×2 (17:08→17:45)
[2020-03-27] MEDS: Nicotine 21 MG/24 HR PATCH TD (17:21)
--- NOTE | 2020-03-29 15:31 | NUR.NOTE ---
Late entry on 03/27/2020 at: 1400: Soft wrist restraints applied bilaterally after NG tube was placed, per Dr Louis's request to protect pt from pulling out his NG tube and Little catheter. 1500: Dr Odonnell in to see patient. Patient resting quietly and showing no signs of harm to self, restraints removed at this time per Dr Odonnell's request. 1505: See rapid response documentation.
== END 2020-03-27 18:00 | disposition short-term general hospital (02) ==
LOC: ER 06:30 → MS 07:03 → ICU 13:36
PROVIDERS: Internal Medicine; Surgery; Admitting Provider Internal Medicine; Emergency Provider Emergency Medicine; Visit Provider Internal Medicine
DX: K86.3 Pseudocyst of pancreas; F33.9 Major depressive disorder, recurrent, unspecified; F41.0 Panic disorder [episodic paroxysmal anxiety]; R50.9 Fever, unspecified; R10.12 Left upper quadrant pain; E83.42 Hypomagnesemia; F17.210 Nicotine dependence, cigarettes, uncomplicated; R11.2 Nausea with vomiting, unspecified; F10.239 Alcohol dependence with withdrawal, unspecified; D72.829 Elevated white blood cell count, unspecified; Z78.1 Physical restraint status; E86.0 Dehydration; Z11.59 Encounter for screening for other viral diseases
CPT/HCPCS: 36415; 71275; 74177; 80053; 80307; 83690; 86850; 86900; 86901; 87040; 93005; 96361; 96374; 96375; 99223; 99255; 99285; 99291; U0003; 80320; 81003; 81015; 82150; 82247; 82248; 83036; 83605; 83735; 84484; 85014; 85018; 85025; 85610; 85730; 86140; 93010; 99220; G0378; J0131; J0743; J0780; J1200; J1630; J1885; J2060; J2405; J3480; J3490